=== PATIENT | male | born 1985 | race Caucasian/White ===

== ENCOUNTER 2018-10-10 07:02 | Emergency (ER) | payer BC | END 2018-10-10 07:35 | disposition left against medical advice (07) | LOC: NAV ERS 07:02 | DX: S60.10XA Contusion of unspecified finger with damage to nail, initial encounter (principal); R55 Syncope and collapse; F17.210 Nicotine dependence, cigarettes, uncomplicated; W23.0XXA Caught, crushed, jammed, or pinched between moving objects, initial encounter ==